=== PATIENT | male | born 1990 | race Caucasian/White ===

== ENCOUNTER 2023-04-07 06:52 | Emergency (ER) | payer MEDICAID ==
[~2023-04-07] VITALS: Ht 175.3 cm; Wt 117.9 kg
[2023-04-07 07:00] VITALS: BP_SYST 155; PULSE 80; RESP 18; TEMP 97.6; O2SAT 100
[2023-04-07] MEDS ORDERED: ACET-2634 PO (07:25)
[2023-04-07] MEDS ORDERED: IBUP-1971 PO (07:25)
[2023-04-07] MEDS ORDERED: KETOROLAC TROMETHAMINE 60 MG/2 ML VIAL IM ONE (07:30)
[2023-04-07 07:48] VITALS: BP_SYST 155; PULSE 80; RESP 18; TEMP 97.6; O2SAT 100
== END 2023-04-07 07:47 | disposition home or self-care (01) ==
LOC: SED 06:52
DX: K02.9 Dental caries, unspecified (principal); F17.210 Nicotine dependence, cigarettes, uncomplicated; F15.10 Other stimulant abuse, uncomplicated; Z79.899 Other long term (current) drug therapy
CPT/HCPCS: 99283; 96372; J1885